=== PATIENT | male | born 1970 | race Two or more races ===

== ENCOUNTER 2017-01-17 13:25 | Emergency (ER) | payer OTHER ==
[2017-01-17 14:30] LABS: BASOPHILS % (AUTO) 0.5 %; EOSINOPHILS # (AUTO) 0.3 10^3/uL (0.0-0.7); EOSINOPHILS % (AUTO) 5.1 %; HCT - HEMATOCRIT 45.6 % (42.0-52.0); LYMPHOCYTES # (AUTO) 1.8 10^3/uL (1.5-3.5); LYMPHOCYTES % (AUTO) 26.3 %; MEAN CORPUSCULAR HEMOGLOBIN 33.4 pg (27.0-31.0); MEAN CORPUSCULAR VOLUME 95.2 fL (80.0-94.0); MEAN PLATELET VOLUME 7.8 fL (7.4-11.4); MONOCYTES # (AUTO) 0.7 10^3/uL (0.0-1.0); MONOCYTES % (AUTO) 11.1 %; NEUTROPHILS # (AUTO) 3.8 10^3/uL (1.5-6.6); RED BLOOD COUNT 4.79 10^6/uL (4.70-6.10); RED CELL DISTRIBUTION WIDTH 12.3 % (12.0-15.0); UNCORRECTED WHITE BLOOD COUNT 6.7 x10^3/uL; WHITE BLOOD COUNT 6.7 x10^3/uL (4.8-10.8)
[2017-01-17 15:19] LABS: ALBUMIN/GLOBULIN RATIO 1.5 (1.0-2.2); BILIRUBIN,TOTAL 0.5 mg/dL (0.2-1.0); CALCIUM 9.5 mg/dL (8.5-10.3); CREATININE 1.4 mg/dL (0.6-1.2); POTASSIUM 4.2 mmol/L (3.5-5.0); TOTAL PROTEIN 7.4 g/dL (6.7-8.2)
--- NOTE | 2017-01-17 16:15 | ED Physician Documentation ---
PD HPI ABD PAIN - Stated complaint Stated Complaint: BACK PAIN - Chief complaint Chief Complaint: Abd Pain - History obtained from History obtained from: Patient - History of Present Illness Timing - onset: How many days ago (few days ago with some back pain, the upper/ left abd pain. Noted some loose stool with blood just 2 days ago, then stools without blood but still with abd cramping.) Timing - duration: Days Timing - details: Gradual onset, Waxing and waning Quality: Cramping, Aching, Pain Location: Epigastric, LUQ Radiation: Left flank, Right flank Improved by: No: Eating Worsened by: No: Eating, Moving Associated symptoms: Nausea, Diarrhea (3 days ago for part of a day.), Hematochezia (just once, bright red, with stools.). No: Fever, Vomiting Review of Systems Constitutional: denies: Fever, Chills, Myalgias Nose: denies: Rhinorrhea / runny nose, Congestion Throat: denies: Sore throat Cardiac: denies: Chest pain / pressure, Palpitations Respiratory: denies: Dyspnea, Cough GI: reports: Abdominal Pain, Nausea, Constipation (had had firm stools prior and then the day of few stool). denies: Vomiting, Diarrhea : denies: Dysuria, Frequency PD PAST MEDICAL HISTORY - Past Medical History Past Medical History: Yes Cardiovascular: Hypertension Endocrine/Autoimmune: None GI: None Musculoskeletal: Chronic back pain - Past Surgical History Past Surgical History: No - Present Medications Home Medications: Ambulatory Orders Medication Instructions Recorded Confirmed Lisinopril 40 mg PO 06/06/13 12/02/13 HYDROcod/ACETAM 5/325 [Vicodin 1 - 2 ea PO Q6H PRN #15 tablet 12/02/13 5/325] Docusate Sodium 100 mg PO DAILY #30 capsule 01/17/17 Lisinopril 40 mg PO DAILY #30 tablet 01/17/17 Methocarbamol [Robaxin] 500 mg PO Q6H PRN #25 tablet 01/17/17 Naproxen 375 mg PO BID #20 tablet 01/17/17 Tramadol HCl 50 mg PO Q6H PRN #25 tablet 01/17/17 - Allergies Allergies/Adverse Reactions: Allergies Allergy/AdvReac Type Severity Reaction Status Date / Time No Known Drug Allergies Allergy Verified 06/06/13 19:00 - Social History Does the pt smoke?: Yes Smoking Status: Current every day smoker Does the pt drink ETOH?: Yes Does the pt have substance abuse?: No - Immunizations Immunizations are current?: Yes - POLST Patient has POLST: No PD ED PE NORMAL - Vitals Vital signs reviewed: Yes - General General: Alert and oriented X 3, No acute distress, Well developed/nourished - HEENT HEENT: Moist mucous membranes, Pharynx benign - Neck Neck: Supple, no meningeal sign, No adenopathy - Cardiac Cardiac: RRR, No murmur - Respiratory Respiratory: Clear bilaterally - Abdomen Abdomen: Normal bowel sounds, Soft, Non distended, No organomegaly, Other (some tenderness LUQ and mid abdomen without guarding nor percussion tenderness. ) - Male Male : Deferred - Rectal Rectal: Deferred - Back Back: No CVA TTP, No spinal TTP - Derm Derm: Normal color, Warm and dry, No rash - Extremities Extremities: No deformity, No tenderness to palpate, No edema, No calf tenderness / cord - Neuro Neuro: Alert and oriented X 3, No motor deficit, No sensory deficit, Normal speech - Psych Psych: Normal mood, Normal affect Results - Vitals Vitals: Oxygen O2 Source Room air - Labs Labs: Laboratory Tests 01/17/17 01/17/17 14:26 14:26 WBC 6.7 RBC 4.79 Hgb 16.0 Hct 45.6 MCV 95.2 H MCH 33.4 H MCHC 35.0 RDW 12.3 Plt Count 214 MPV 7.8 Neut # 3.8 Lymph # 1.8 [place] # 0.7 Eos # 0.3 Baso # 0.0 Absolute Nucleated RBC 0.00 Nucleated RBC % 0.0 Sodium 139 Potassium 4.2 Chloride 103 Carbon Dioxide 28 Anion Gap 8.0 BUN 15 Creatinine 1.4 H Estimated GFR (MDRD) 55 L Glucose 104 H Calcium 9.5 Total Bilirubin 0.5 AST 28 ALT 31 Alkaline Phosphatase 47 Total Protein 7.4 Albumin 4.4 Globulin 3.0 Albumin/Globulin Ratio 1.5 Lipase 48 - Rads (name of study) abd CT Radiology: Prelim report reviewed (normal, no acute process) PD MEDICAL DECISION MAKING - ED course Complexity details: reviewed results, considered differential (no obvious cause for the pain. Would be concerned about diverticulitis, kidney stones, ulcers, vascular problems, gastric ulcer with perf, etc.), d/w patient Departure - Departure Disposition: 01 Home, Self Care Clinical Impression: Neck pain, Upper abdominal pain Condition: Stable Record reviewed to determine appropriate education?: Yes Instructions: ED Abdominal Pain Unkn Cause, ED Neck Back Pain General Follow-Up: ARTURO Samuel [Provider Group] Prescriptions: Docusate Sodium 100 mg PO DAILY #30 capsule Lisinopril 40 mg PO DAILY #30 tablet Methocarbamol [Robaxin] 500 mg PO Q6H PRN #25 tablet PRN Reason: Spasms Naproxen 375 mg PO BID #20 tablet Tramadol HCl 50 mg PO Q6H PRN #25 tablet PRN Reason: Pain Comments: Drink lots of fluids. Docusate stool softener daily in case the abdominal pain is from intestinal irritation and this may help. For it in the neck also use naproxen twice daily for the next 7-10 days. For the neck add muscle relaxant methocarbamol 3 times daily. Add Tylenol or tramadol if needed for pains. Continue usual medication. Follow-up with your primary care in about a week, call for an appointment. Return sooner if worsening. Discharge Date/Time: 01/17/17 18:34
[2017-01-17] MEDS ORDERED: HYDROcod/ACETAM 5/325 MG TABLET PO STA (16:45)
[2017-01-17] MEDS ORDERED: HYDROcod/ACETAM 5/325 MG TABLET ONE (16:55)
--- NOTE | 2017-01-17 17:12 | XRAY Preliminary Report ---
Exam: XR CERVICAL SPINE 2 VIEW IMPRESSION: 1. Mild degenerative disease. No fracture or subluxation. [facility] SITE ID: [id number]
--- NOTE | 2017-01-17 17:15 | XRAY Report ---
EXAM: CERVICAL SPINE RADIOGRAPHY EXAM DATE: 01/17/2017 05:02 PM. CLINICAL HISTORY: Neck pain for long time. COMPARISONS: None. TECHNIQUE: 3 views. FINDINGS: Alignment: Normal. No spondylolisthesis or scoliosis. Bones: The cervical vertebral bodies and posterior elements are well visualized from the skull base t hrough C7-T1. No fractures or bone lesions. Disks: There is mild disk osteophyte spurring at C3-C4 and C5-C6. Facets: Facet joints appear in satisfactory alignment. Soft Tissues: Trachea is midline. IMPRESSION: 1. Mild degenerative disease. No fracture or subluxation. [facility] Referring Provider Line: [phone] SITE ID: [id number]
--- NOTE | 2017-01-17 17:22 | CT Preliminary Report ---
Exam: CT Abdomen/Pelvis W/O IMPRESSION: 1. 4 x 2 mm nonobstructing left kidney stone. 2. Otherwise negative exam. [facility] SITE ID: [id number]
--- NOTE | 2017-01-17 17:24 | CT Report ---
EXAM: CT ABDOMEN AND PELVIS (CT KUB) EXAM DATE: 01/17/2017 05:06 PM. CLINICAL HISTORY: Flank and left abd pain. COMPARISONS: None. TECHNIQUE: Routine axial helical CT imaging was performed through the abdomen and pelvis without IV c ontrast. Reconstructions: Coronal and sagittal. In accordance with CT protocol optimization, one or more of the following dose reduction techniques w ere utilized for this exam: automated exposure control, adjustment of mA and/or KV based on patient s ize, or use of iterative reconstructive technique. FINDINGS: Lung Bases: Unremarkable. Right Kidney/Ureter: No stones, hydronephrosis, or hydroureter. No perinephric fat stranding. Left Kidney/Ureter: There is a 4 x 2 mm stone in the mid upper pole calyx of left kidney. No hydronep hrosis or obstructing ureter stone. Other Solid Organs: Noncontrast images of the solid organs are grossly unremarkable. Gallbladder/Bile Ducts: The gallbladder is contracted. Peritoneal Cavity: There are no dilated bowel loops. No localized inflammatory process. The appendix is visible and appears normal. Pelvic Organs: Urinary bladder is empty. Vasculature: Unremarkable. Other: None. IMPRESSION: 1. 4 x 2 mm nonobstructing left kidney stone. 2. Otherwise negative exam. [facility] Referring Provider Line: [phone] SITE ID: [id number]
[2017-01-17] MEDS ORDERED: NAPROXEN 250 MG TABLET PO STA (18:17)
[2017-01-17] MEDS ORDERED: METHOCARBAMOL 500 MG TABLET PO STA (18:17)
[2017-01-17] MEDS ORDERED: NAPROXEN 250 MG TABLET PO ONE (18:28)
[2017-01-17] MEDS ORDERED: METHOCARBAMOL 500 MG TABLET PO ONE (18:28)
[2017-01-17 18:34] VITALS: BP 159/97
== END 2017-01-17 18:34 | disposition home or self-care (01) ==
LOC: ED 13:25
DX: R10.12 Left upper quadrant pain (principal); M54.2 Cervicalgia; I10 Essential (primary) hypertension; F17.200 Nicotine dependence, unspecified, uncomplicated
CPT/HCPCS: 36415; 72040; 74176; 80053; 83690; 85025; 99283; 99284; A9270

== ENCOUNTER 2017-01-24 09:25 | Inpatient (IN) | payer OTHER ==
[2017-01-24] MEDS ORDERED: SODIUM CHLORIDE 0.9% 1,000 ML IV ONE (09:39)
[2017-01-24 09:51] LABS: BASOPHILS # (AUTO) 0.1 10^3/uL (0.0-0.1); BASOPHILS % (AUTO) 0.7 %; EOSINOPHILS # (AUTO) 0.2 10^3/uL (0.0-0.7); EOSINOPHILS % (AUTO) 2.7 %; HCT - HEMATOCRIT 34.3 % (42.0-52.0); HGB - HEMOGLOBIN 11.9 g/dL (14.0-18.0); LYMPHOCYTES # (AUTO) 2.1 10^3/uL (1.5-3.5); LYMPHOCYTES % (AUTO) 24.8 %; MEAN CORPUSCULAR HEMOGLOBIN 32.9 pg (27.0-31.0); MEAN CORPUSCULAR HGB CONC 34.7 g/dL (32.0-36.0); MEAN PLATELET VOLUME 7.6 fL (7.4-11.4); MONOCYTES # (AUTO) 0.7 10^3/uL (0.0-1.0); MONOCYTES % (AUTO) 7.9 %; NEUTROPHILS # (AUTO) 5.5 10^3/uL (1.5-6.6); NEUTROPHILS % (AUTO) 63.9 %; RED BLOOD COUNT 3.61 10^6/uL (4.70-6.10); RED CELL DISTRIBUTION WIDTH 12.1 % (12.0-15.0); UNCORRECTED WHITE BLOOD COUNT 8.6 x10^3/uL; WHITE BLOOD COUNT 8.6 x10^3/uL (4.8-10.8)
[2017-01-24] MEDS ORDERED: FAMOTIDINE 20 MG/50 ML 50 ML IV ONE ×2 (09:54→10:04)
[2017-01-24] MEDS ORDERED: PANTOPRAZOLE 40 MG in SODIUM CHLORIDE 0.9% 100ML 100 ML IV STA (09:54)
--- NOTE | 2017-01-24 09:57 | ED Physician Documentation ---
History of Present Illness - Stated complaint Stated Complaint: VOMITIN/BLACK STOOL - Chief complaint Chief Complaint: Abd Pain - Additonal information Additional information: hx from pt 46 male [place] [employer] [place] seen 01/17 for upper abd pain and hematemesis X [address] now to ER with black stools still with int upper abd pain takes motrin and drinks EtOH no prior abd surgery no blood thinners Review of Systems Constitutional: denies: Fever, Chills Throat: denies: Sore throat Cardiac: denies: Chest pain / pressure Respiratory: denies: Dyspnea, Cough GI: reports: Abdominal Pain, Bloody / black stool Neurologic: denies: Generalized weakness Endocrine: denies: Easy bruising / bleeding Immunocompromised: denies: Immunocompromised PD PAST MEDICAL HISTORY - Past Medical History Cardiovascular: Hypertension Endocrine/Autoimmune: None GI: None, GI bleed Musculoskeletal: Chronic back pain - Past Surgical History Past Surgical History: No - Present Medications Home Medications: Ambulatory Orders Medication Instructions Recorded Confirmed Docusate Sodium 100 mg PO DAILY #30 capsule 01/17/17 01/24/17 Lisinopril 40 mg PO DAILY #30 tablet 01/17/17 01/24/17 Methocarbamol [Robaxin] 500 mg PO Q6H PRN #25 tablet 01/17/17 01/24/17 Naproxen 375 mg PO BID #20 tablet 01/17/17 01/24/17 - Allergies Allergies/Adverse Reactions: Allergies Allergy/AdvReac Type Severity Reaction Status Date / Time No Known Drug Allergies Allergy Verified 06/06/13 19:00 - Social History Does the pt smoke?: Yes Smoking Status: Current every day smoker Does the pt drink ETOH?: Yes ETOH Use: Beer Does the pt have substance abuse?: No - Immunizations Immunizations are current?: Yes - POLST Patient has POLST: No PD ED PE NORMAL - Vitals Vital signs reviewed: Yes (tachy SBP 101 and pt normally hypertensive) - General General: Alert and oriented X 3 - HEENT HEENT: PERRL - Neck Neck: Supple, no meningeal sign - Cardiac Cardiac: RRR - Respiratory Respiratory: No respiratory distress, Clear bilaterally - Abdomen Abdomen: Soft, Non tender (at this time no TTP but pt repoers int upper abd pain ) - Rectal Rectal: Other (no mass black strongle heme + stool) - Derm Derm: Normal color - Extremities Extremities: No deformity - Neuro Neuro: Alert and oriented X 3 Results - Vitals Vitals: Vital Signs - 24 hr 01/24/17 01/24/17 01/24/17 09:29 10:11 11:38 Temperature 36.7 C Heart Rate 110 H 91 Respiratory 18 16 Rate Blood Pressure 101/74 95/63 106/63 O2 Saturation 100 98 01/24/17 11:39 Temperature Heart Rate 102 H Respiratory 16 Rate Blood Pressure 96/61 O2 Saturation 100 Oxygen O2 Source Room air - Labs Labs: Laboratory Tests 01/24/17 01/24/17 01/24/17 09:40 09:40 09:40 WBC 8.6 RBC 3.61 L Hgb 11.9 L Hct 34.3 L MCV 95.0 H MCH 32.9 H MCHC 34.7 RDW 12.1 Plt Count 233 MPV 7.6 Neut # 5.5 Lymph # 2.1 [place] # 0.7 Eos # 0.2 Baso # 0.1 Absolute Nucleated RBC 0.00 Nucleated RBC % 0.0 PT INR Sodium 137 Potassium 3.8 Chloride 106 Carbon Dioxide 23 Anion Gap 8.0 BUN 62 H Creatinine 1.7 H Estimated GFR (MDRD) 44 L Glucose 104 H Calcium 9.1 Total Bilirubin 0.5 AST 21 ALT 22 Alkaline Phosphatase 28 L Total Protein 6.7 Albumin 4.0 Globulin 2.7 Albumin/Globulin Ratio 1.5 Lipase 82 H Blood Type A POSITIVE Antibody Screen NEGATIVE 01/24/17 09:55 WBC RBC Hgb Hct MCV MCH MCHC RDW Plt Count MPV Neut # Lymph # [place] # Eos # Baso # Absolute Nucleated RBC Nucleated RBC % PT 12.2 INR 1.1 Sodium Potassium Chloride Carbon Dioxide Anion Gap BUN Creatinine Estimated GFR (MDRD) Glucose Calcium Total Bilirubin AST ALT Alkaline Phosphatase Total Protein Albumin Globulin Albumin/Globulin Ratio Lipase Blood Type Antibody Screen PD MEDICAL DECISION MAKING - ED course ED course: pt had non con CT a week ago - no acute process sounds like upper GI bleed now, likely 2/2 NSAIDS and/or EtOH, with melena slightly tachycardia and borderline hypotension H/H sig drop from 01/17/17 also inc creat / renal insuff lipase noted, no sig abd pain or TTP right now, no sign of pancreatitis on recent CT scan will admit for further eval and management paged hospitalist and surgeon at 1035 AM surgeon promptly to ER and will take pt to same day surgery hospitalist to ED quickly as well and emanuel admit to inpt after scope given several L NS and should recheck creat GFR Departure - Departure Disposition: 66 [facility] DC/Xfer Clinical Impression: Renal insufficiency, Abnormal serum lipase level GI bleed Qualifiers: GI bleed type/associated pathology: unspecified gastrointestinal hemorrhage type Qualified Code(s): K92.2 - Gastrointestinal hemorrhage, unspecified Condition: Fair
[2017-01-24 10:03] LABS: ALBUMIN/GLOBULIN RATIO 1.5 (1.0-2.2); BILIRUBIN,TOTAL 0.5 mg/dL (0.2-1.0); CALCIUM 9.1 mg/dL (8.5-10.3); CREATININE 1.7 mg/dL (0.6-1.2); POTASSIUM 3.8 mmol/L (3.5-5.0); TOTAL PROTEIN 6.7 g/dL (6.7-8.2)
[2017-01-24] MEDS ORDERED: PANTOPRAZOLE 40 MG VIAL ONE (10:05)
[2017-01-24] MEDS ORDERED: SODIUM CHLORIDE FLUSH 0.9% 10 ML SYRINGE IVP ONE (10:05)
[2017-01-24 10:15] LABS: INR 1.1 (0.8-1.2); PT - PROTHROMBIN TIME 12.2 secs (9.9-12.6)
[2017-01-24] MEDS ORDERED: SODIUM CHLORIDE 0.9% 2,000 ML IV ONE (11:10)
[2017-01-24] MEDS ORDERED: METHOCARBAMOL 500 MG TABLET PO PRN (11:44)
[2017-01-24] MEDS ORDERED: ONDANSETRON 4 MG/2 ML VIAL IVP PRN (11:46)
[2017-01-24] MEDS ORDERED: ACETAMINOPHEN 325 MG TABLET PO PRN (11:46)
[2017-01-24] MEDS ORDERED: MORPHINE 2 MG/ML SYRINGE IVP PRN (11:46)
[2017-01-24] MEDS ORDERED: SODIUM CHLORIDE FLUSH 0.9% 10 ML SYRINGE IVP PRN (11:46)
[2017-01-24] MEDS ORDERED: FOLIC ACID INJ 1 MG in SODIUM CHLORIDE 0.9% 1,000 ML IV STA (11:57)
[2017-01-24] MEDS ORDERED: THIAMINE INJ 100 MG in SODIUM CHLORIDE 0.9% 50 ML IV STA (11:57)
[2017-01-24] MEDS ORDERED: LACTATED RINGERS 1,000 ML IV ONE (12:10)
[2017-01-24] MEDS ORDERED: EPINEPHrine 1 MG/ML AMP IM ONE (12:16)
[2017-01-24] MEDS ORDERED: LORazepam 2 MG/ML SYRINGE IVP PRN (12:18)
[2017-01-24] MEDS ORDERED: MIDAZOLAM 2 MG/2 ML VIAL IVP ONE (12:27)
[2017-01-24] MEDS ORDERED: fentaNYL 100 MCG/2 ML VIAL IVP ONE (12:27)
--- NOTE | 2017-01-24 12:57 | CONSULTATION NOTE ---
DATE OF CONSULTATION: 01/24/2017 00:00:00 REQUESTING PROVIDER: Shirley Martinez MD DATE OF ADMISSION: 01/24/2017 CONSULTATION AND A PRE-PROCEDURE NOTE I am called in consultation on this 46-year-old male by Dr. Shirley Martinez, to evaluate him for presum ed upper GI bleed. He was evaluated in room 4 at [facility]'s Emergency Department. The chief complaint is that of vomiting and black stools. HISTORY OF PRESENT ILLNESS: The patient was seen on January 17 for upper abdominal pain and hemateme sis x1. At that time he had a CT scan which was unrevealing. Now he is back to the emergency room wit h black stools and a decreased hemoglobin and hematocrit. He does take nonsteroidal anti-inflammatory drugs and drinks alcohol. He has had no previous abdominal surgery. He is not on any blood thinners. The history is obtained from the patient. ALLERGIES: NONE. MEDICATIONS 1. Docusate sodium 100 mg p.o. daily. 2. Lisinopril 40 mg p.o. daily. 3. Robaxin 500 mg p.o. every 6 hours as needed for pain. 4. Naprosyn 375 mg p.o. b.i.d. PAST MEDICAL AND SURGICAL HISTORY Includes: 1. Hypertension. 2. Chronic back pain. FAMILY HISTORY: Negative for any GI disease including cancer, inflammatory bowel disease, or GI bleed . SOCIAL HISTORY TOBACCO: He is an every day smoker. ALCOHOL: He drinks beer. RECREATIONAL DRUG USE: None. REVIEW OF SYSTEMS GENERAL: He denies fever, chills, or unexplained weight loss. HEENT: He denies any increase or decrease in his vision or hearing. NECK: He denies difficulty swallowing or speaking. CARDIAC: He denies chest pain or pressure. RESPIRATORY: He denies shortness of breath or productive cough. GASTROINTESTINAL: See above. NEUROLOGIC: He denies generalized weakness or focal weakness. ENDOCRINE: He denies easy bleeding or bruising. PHYSICAL EXAMINATION GENERAL: Again, the patient was examined in bed 4 at [facility]'s Emergency Departm ent. He is alert and oriented to person, place, and time. His mood and affect appear appropriate. He asks and answers questions without difficulty. VITAL SIGNS: Please refer to the nurse's note. HEENT: He is normocephalic. Anicteric. His sclerae are not injected, nonicteric, although his conjunc tivae appear pale. His mucous membranes are pink and slightly dry. NECK: Supple without mass or bruit. HEART: Slightly tachycardic. Without murmur. RESPIRATORY: There are breath sounds bilaterally. They are equal. There are no rhonchi or rales. ABDOMEN: Soft, nontender. RECTAL: Deferred. EXTREMITIES: No clubbing, cyanosis, or edema. GAIT: Normal (it was noticed as he went to the bathroom to go urinate). NEUROLOGIC: He is alert and oriented to person, place and time. His mood and affect appear appropriat e. He asks and answers questions well without focal deficit. LABORATORIES Abnormalities on his chemistry include a BUN of 62, creatinine of 1.7, GFR 44, glucose 104, alkaline phosphatase 28, lipase of 82. Coagulation profile: His PT is 12.2, INR is 1.1. Abnormalities on a CBC include an RBC of 3.61. Hemoglobin of 11.9, hematocrit of 34.3, MCV of 95.0, M CH of 32.9. ASSESSMENT: A 46-year-old male who, by history and symptoms, has a history of an upper gastrointestin al bleed as confirmed by melena, and decreased hemoglobin and hematocrit in the presence of nonsteroi jose luis use, as well as alcohol use. PLAN: Esophagogastroduodenoscopy. The indications, procedure, alternatives, and possible complication s including, but not limited to, perforation requiring operative repair, bleeding with all of its ris ks including transfusion, and were fully explained to the patient, and all questions were answe red. Verbal and written consent was obtained. The patient in preparation for this has been n.p.o. If there is any way we can make his stay at [facility] more comfortable, I asked him t o let us know. JOB #: [id number] EXT JOB #:[id number]
--- NOTE | 2017-01-24 13:11 | HISTORY & PHYSICAL EXAMINATION ---
DATE OF ADMISSION: 01/24/2017 DATE 01/24/2017 time is 12:35 p.m. CODE STATUS IS FULL CODE. PRIMARY CARE PROVIDER: Dr. Card EXAM LIMITATIONS: None. RECORDS REVIEWED: Yes. SOURCE OF INFORMATION: The patient. Yes he has an advanced directive. CHIEF COMPLAINT: Black and tarry stools with diarrhea. HISTORY OF PRESENT ILLNESS: The patient, a 46-year-old male, began having black tarry stools 3 days ago. Two days ago he had at least 4 cans of beer and more beer the day before. He has had nausea and vomiting. DRUG ALLERGIES: NONE. HOME MEDICATIONS: 1. Lisinopril 40 mg. 1 tab p.o. every day. 2. Acetaminophen p.r.n. 3. Robaxin 500 mg every 6 hours. 4. Naproxen 375 mg 1 tab p.o. twice a day. 5. Colace 100 mg tab p.o. every day. PAST MEDICAL HISTORY: Hypertension and lower back pain. PAST SURGICAL HISTORY: Noncontributory. FAMILY HISTORY: Noncontributory. SOCIAL HISTORY: He is . He has 2 children. 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 Smoking history of half a pack per day for 18 years. Alcohol history is abusive. Recreational drug abuse is none. [place] REVIEW OF SYSTEMS: RESPIRATORY: No productive cough, no shortness of breath. HEART: No chest pain, no palpitations. ABDOMEN: Diarrhea, nausea, vomiting and epigastric pain. Urinary system is no frequency, no burning urine. HEAD: No headaches. EYES: No blurred vision. EARS: No tinnitus or ear pain. NOSE: No runny nose. No pain or redness. MUSCULOSKELETAL: Lower back pain JOINTS: No joint pain. NEUROLOGICAL: No aphasia, no dementia. No limb weakness. Weakness and fatigue is yes and fevers no. PHYSICAL EXAMINATION: VITAL SIGNS: Temperature of 36.7, pulse 110, a respiratory rate of 18, blood pressure of 101/74, O2 saturation is 100% on room air. GENERAL: He is a well-nourished, alert, cooperative gentleman. HEENT: Head is atraumatic, normocephalic. Eyes are PERRLA, EOMI. NECK: Supple. No JVD, no bruits, no thyroid enlargement. No adenopathy. HEART: Regular rate and rhythm. LUNGS: Clear to auscultation. ABDOMEN: Positive for bowel sounds, soft, epigastric pain, no rebound, no guarding. EXTREMITIES: Warm. No edema, +2 pedal pulses. He has 5/5 muscle strength in upper and lower extremities. NEUROLOGIC: He is oriented x3, follows commands, moves all 4 extremities. Cranial nerves 2-12 are intact. LABORATORY DATA: Sodium is 137, potassium is 3.8, chloride is 106, bicarbonate is 23, BUN 62, creatinine is 1.7, glucose is 104. White blood cells is 8.6, hemoglobin is 11.9, hematocrit 34.3, glomerular filtration rate is 44, platelets are 233,000. PT is 12.2, INR is 1.1. Lipase is 85. Blood type is A. ASSESSMENT AND PLAN: 1. Gastrointestinal bleed. He will get hemograms every 8 hours. He has been typed and crossed for 2 units of packed red blood cells. He will get a CBC and CMP in a.m. He has a Dr. Gr consult. He will be on IV Protonix and IV 0.9 normal saline. For alcohol abuse withdrawal he is on CIWA protocol, banana bag, thiamine and folic acid. He will be in ICU bed. He will be on telemetry. He will get morphine sulfate for pain. 2. For deep venous thrombosis prophylaxis he will have SCDs and he is on IV Protonix to prevent stress ulcer. Anticipated length of stay is 3 days. JOB #: [id number] EXT JOB #:[id number] NAYELI
[2017-01-24 14:20] LABS: BASOPHILS % (AUTO) 0.5 %; EOSINOPHILS # (AUTO) 0.1 10^3/uL (0.0-0.7); EOSINOPHILS % (AUTO) 1.2 %; HCT - HEMATOCRIT 27.1 % (42.0-52.0); HGB - HEMOGLOBIN 9.3 g/dL (14.0-18.0); LYMPHOCYTES # (AUTO) 1.8 10^3/uL (1.5-3.5); MEAN CORPUSCULAR HEMOGLOBIN 33.2 pg (27.0-31.0); MEAN CORPUSCULAR HGB CONC 34.3 g/dL (32.0-36.0); MEAN CORPUSCULAR VOLUME 96.8 fL (80.0-94.0); MEAN PLATELET VOLUME 7.3 fL (7.4-11.4); MONOCYTES # (AUTO) 0.6 10^3/uL (0.0-1.0); MONOCYTES % (AUTO) 7.1 %; NEUTROPHILS # (AUTO) 6.4 10^3/uL (1.5-6.6); NEUTROPHILS % (AUTO) 71.2 %; UNCORRECTED WHITE BLOOD COUNT 8.9 x10^3/uL; WHITE BLOOD COUNT 8.9 x10^3/uL (4.8-10.8)
[2017-01-24 14:39] LABS: ALBUMIN/GLOBULIN RATIO 1.4 (1.0-2.2); BILIRUBIN,TOTAL 0.4 mg/dL (0.2-1.0); CALCIUM 7.8 mg/dL (8.5-10.3); CREATININE 1.4 mg/dL (0.6-1.2); PHOSPHORUS 2.3 mg/dL (2.5-4.6); POTASSIUM 3.8 mmol/L (3.5-5.0); TOTAL PROTEIN 5.2 g/dL (6.7-8.2)
[2017-01-24] MEDS: SODIUM CHLORIDE FLUSH 0.9% 10 ML SYRINGE IVP SCH ×2 (14:58→21:35)
[2017-01-24] MEDS: SODIUM CHLORIDE 0.9% 1,000 ML IV SCH (14:58)
[2017-01-24] MEDS: SUCRALFATE 1 GM/10 ML UDC PO SCH ×3 (14:58→21:35)
[2017-01-24] MEDS: MULTIVITAMIN 10 ML in SODIUM CHLORIDE 0.9% 1,000 ML IV SCH (15:31)
[2017-01-24] MEDS: SODIUM CHLORIDE 0.9% IV SCH (15:31)
[2017-01-24] MEDS: FOLIC ACID IV SCH (15:31)
[2017-01-24] MEDS: THIAMINE IV SCH (15:31)
[2017-01-24] MEDS ORDERED: SODIUM CHLORIDE 0.9% IV SCH (16:00)
[2017-01-24] MEDS ORDERED: SUCRALFATE 1 GM/10 ML UDC PO SCH (16:00)
[2017-01-24] MEDS ORDERED: FOLIC ACID INJ 1 MG in SODIUM CHLORIDE 0.9% 1,000 ML IV SCH (16:00)
[2017-01-24] MEDS ORDERED: FOLIC ACID IV SCH (16:00)
[2017-01-24 20:22] LABS: HCT - HEMATOCRIT 25.9 % (42.0-52.0); HGB - HEMOGLOBIN 8.9 g/dL (14.0-18.0); MEAN CORPUSCULAR HEMOGLOBIN 33.2 pg (27.0-31.0); MEAN CORPUSCULAR HGB CONC 34.5 g/dL (32.0-36.0); MEAN CORPUSCULAR VOLUME 96.4 fL (80.0-94.0); MEAN PLATELET VOLUME 7.2 fL (7.4-11.4); RED BLOOD COUNT 2.68 10^6/uL (4.70-6.10); RED CELL DISTRIBUTION WIDTH 12.1 % (12.0-15.0); WHITE BLOOD COUNT 10.3 x10^3/uL (4.8-10.8)
[2017-01-24] MEDS: PANTOPRAZOLE 40 MG VIAL IVP SCH (21:37)
[2017-01-24] MEDS: NEUTRA-PHOS 250 MG TABLET PO SCH (22:24)
[2017-01-25] MEDS: NEUTRA-PHOS 250 MG TABLET PO SCH ×3 (00:39→09:19)
[2017-01-25] MEDS: SODIUM CHLORIDE 0.9% 1,000 ML IV SCH ×2 (01:42→20:14)
[2017-01-25] MEDS: SODIUM CHLORIDE FLUSH 0.9% 10 ML SYRINGE IVP SCH ×4 (06:29→22:30)
[2017-01-25] MEDS: SUCRALFATE 1 GM/10 ML UDC PO SCH ×4 (06:29→22:30)
[2017-01-25] MEDS ORDERED: PANTOPRAZOLE 40 MG VIAL IVP SCH (07:00)
[2017-01-25 08:31] LABS: BASOPHILS # (AUTO) 0.1 10^3/uL (0.0-0.1); BASOPHILS % (AUTO) 1.1 %; EOSINOPHILS # (AUTO) 0.2 10^3/uL (0.0-0.7); EOSINOPHILS % (AUTO) 3.6 %; HCT - HEMATOCRIT 23.3 % (42.0-52.0); LYMPHOCYTES # (AUTO) 1.6 10^3/uL (1.5-3.5); LYMPHOCYTES % (AUTO) 24.7 %; MEAN CORPUSCULAR HEMOGLOBIN 32.8 pg (27.0-31.0); MEAN CORPUSCULAR HGB CONC 34.4 g/dL (32.0-36.0); MEAN CORPUSCULAR VOLUME 95.3 fL (80.0-94.0); MEAN PLATELET VOLUME 7.3 fL (7.4-11.4); MONOCYTES # (AUTO) 0.4 10^3/uL (0.0-1.0); NEUTROPHILS % (AUTO) 63.6 %; RED BLOOD COUNT 2.45 10^6/uL (4.70-6.10); RED CELL DISTRIBUTION WIDTH 11.9 % (12.0-15.0); UNCORRECTED WHITE BLOOD COUNT 6.3 x10^3/uL; WHITE BLOOD COUNT 6.3 x10^3/uL (4.8-10.8)
[2017-01-25 08:43] LABS: ALBUMIN/GLOBULIN RATIO 1.4 (1.0-2.2); BILIRUBIN,TOTAL 0.5 mg/dL (0.2-1.0); CALCIUM 7.5 mg/dL (8.5-10.3); CREATININE 1.2 mg/dL (0.6-1.2); POTASSIUM 3.6 mmol/L (3.5-5.0); TOTAL PROTEIN 5.1 g/dL (6.7-8.2)
[2017-01-25] MEDS: FOLIC ACID IV SCH (09:17)
[2017-01-25] MEDS: THIAMINE IV SCH (09:17)
[2017-01-25] MEDS: SODIUM CHLORIDE 0.9% IV SCH (09:17)
[2017-01-25] MEDS: MULTIVITAMIN 10 ML in SODIUM CHLORIDE 0.9% 1,000 ML IV SCH (09:18)
[2017-01-25] MEDS: PANTOPRAZOLE 40 MG VIAL IVP SCH (09:19)
[2017-01-25] MEDS: LISINOPRIL 20 MG TABLET PO SCH (10:41)
[2017-01-25 14:31] LABS: VBG PH 7.384 (7.31-7.41)
[2017-01-25 14:32] LABS: CALCIUM, IONIZED 1.07 mmol/L (1.15-1.33)
[2017-01-25] MEDS ORDERED: CALCIUM GLUCONATE 1,000 MG in SODIUM CHLORIDE 0.9% 50 ML IV ONE (14:48)
--- NOTE | 2017-01-25 17:40 | PROVIDER PROGRESS NOTE ---
Subjective - Prog Note Date Prog Note Date: 01/25/17 Prog Note Time: 17:38 - Subjective Subjective: he is antsy and wants to go home. still having black tarry stools. hungry and wants to eat. Hgb has drifted down to 8 this am. Current Medications - Current Medications Current Medications: Active Medications Acetaminophen (Tylenol) 650 mg PO Q4HR PRN PRN Reason: Pain 1 to 4 Folic Acid () 1 mg PO DAILY [facility] Sodium Chloride (Normal Saline 0.9%) 1,000 mls @ 100 mls/hr IV .Q10H [facility] Last Infusion: 01/25/17 09:18 Dose: 0 mls/hr Multivitamins 10 ml/ Sodium (Chloride) 1,010 mls @ 100 mls/hr IV DAILY [facility] Last Admin: 01/25/17 09:18 Dose: 100 mls/hr Folic Acid 1 mg/ Thiamine HCl (100 mg/ Sodium Chloride) 101.2 mls @ 100 mls/hr IV DAILY [facility] Last Infusion: 01/25/17 10:41 Dose: Infused Lisinopril (Zestril) 40 mg PO DAILY [facility] Last Admin: 01/25/17 10:41 Dose: Not Given Lorazepam (Ativan Inj) 1 mg IVP Q30M PRN; Protocol PRN Reason: CIWA > 8 Methocarbamol (Robaxin) 500 mg PO Q6H PRN PRN Reason: Spasms Morphine Sulfate (Morphine) 1 mg IVP Q6H PRN PRN Reason: Pain 8 to 10 Ondansetron HCl (Zofran Inj) 4 mg IVP Q6HR PRN PRN Reason: Nausea / Vomiting Pantoprazole Sodium (Protonix) 40 mg IVP BID [facility] Last Admin: 01/25/17 09:19 Dose: 40 mg Sodium Chloride (Normal Saline Flush 0.9%) 10 ml IVP Q8HR [facility] Last Admin: 01/25/17 15:54 Dose: 10 ml Sodium Chloride (Normal Saline Flush 0.9%) 10 ml IVP PRN PRN PRN Reason: NEEDED PER PROVIDER ORDERS Sucralfate (Carafate) 1 gm PO 0700,1100,1600,2200 [facility] Last Admin: 01/25/17 16:16 Dose: 1 gm Thiamine HCl (Vitamin B-1) 100 mg PO DAILY JONATHAN Objective - Vital Signs/Intake & Output Reviewed Vital Signs: Yes Vital Signs: Vital Signs x48h Temp Pulse Resp BP Pulse Ox 01/25/17 17:00 73 20 102/74 100 01/25/17 16:00 73 20 115/81 H 100 01/25/17 15:00 78 20 97/64 100 01/25/17 14:00 76 21 107/65 100 01/25/17 13:00 90 26 H 125/79 100 01/25/17 12:00 36.7 C 81 24 94/66 100 01/25/17 11:00 90 21 101/67 100 01/25/17 10:00 74 25 H 102/65 100 Intake & Output: Intake & Output 01/22/17 01/23/17 01/24/17 01/25/17 23:59 23:59 23:59 23:59 Intake Total 2832.867 1761.200 Output Total 900 200 Balance 2206.667 2959.200 - Objective General Appearance: positive: No acute distress, Alert, Other (short statured hsipanic male who looks younger than stated age) Eyes Bilateral: positive: PERRL, EOMI ENT: positive: Pharynx nml Neck: positive: No JVD. negative: Lymphadenopathy (R), Lymphadenopathy (L), Stiff neck, Carotid bruit Respiratory: positive: Chest non-tender. negative: Wheezes, Rales, Rhonchi Cardiovascular: positive: Regular rate & rhythm. negative: Systolic murmur, Gallop/S4, Friction rub Abdomen: positive: No organomegaly, Nml bowel sounds, No distention, Tenderness (mild and mid abd around umbilicus and epigastrium) Skin: positive: Warm, Dry Extremities: positive: Non-tender, Full ROM Neurologic/Psychiatric: positive: Oriented x3, CN's nml (2-12), Motor nml, Depressed mood/affect - Lab Results Fish Bones: 01/25/17 08:14 01/25/17 08:14 Other Labs: Lab Results x24hrs 01/25/17 01/25/17 01/25/17 Range/Units 14:14 08:14 08:14 WBC 6.3 (4.8-10.8) x10^3/uL RBC 2.45 L (4.70-6.10) 10^6/uL Hgb 8.0 L (14.0-18.0) g/dL Hct 23.3 L (42.0-52.0) % MCV 95.3 H (80.0-94.0) fL MCH 32.8 H (27.0-31.0) pg MCHC 34.4 (32.0-36.0) g/dL RDW 11.9 L (12.0-15.0) % Plt Count 155 (130-450) 10^3/uL MPV 7.3 L (7.4-11.4) fL Neut # 4.0 (1.5-6.6) 10^3/uL Lymph # 1.6 (1.5-3.5) 10^3/uL [place] # 0.4 (0.0-1.0) 10^3/uL Eos # 0.2 (0.0-0.7) 10^3/uL Baso # 0.1 (0.0-0.1) 10^3/uL Absolute Nucleated RBC 0.00 x10^3/uL Nucleated RBC % 0.0 /100WBC VBG pH 7.384 (7.31-7.41) Ionized Calcium 1.07 L (1.15-1.33) mmol/L Sodium 141 (135-145) mmol/L Potassium 3.6 (3.5-5.0) mmol/L Chloride 113 H (101-111) mmol/L Carbon Dioxide 23 (21-32) mmol/L Anion Gap 5.0 L (6-13) BUN 27 H (6-20) mg/dL Creatinine 1.2 (0.6-1.2) mg/dL Estimated GFR (MDRD) 65 L (>89) Glucose 97 (70-100) mg/dL POC Whole Bld Glucose (70 - 100) mg/dL Calcium 7.5 L (8.5-10.3) mg/dL Phosphorus (2.5-4.6) mg/dL Magnesium (1.7-2.8) mg/dL Total Bilirubin 0.5 (0.2-1.0) mg/dL AST 18 (10-42) IU/L ALT 19 (10-60) IU/L Alkaline Phosphatase 28 L (42-121) IU/L Total Protein 5.1 L (6.7-8.2) g/dL Albumin 3.0 L (3.2-5.5) g/dL Globulin 2.1 (2.1-4.2) g/dL Albumin/Globulin Ratio 1.4 (1.0-2.2) 01/25/17 01/25/17 01/25/17 Range/Units 06:04 04:51 00:37 WBC (4.8-10.8) x10^3/uL RBC (4.70-6.10) 10^6/uL Hgb (14.0-18.0) g/dL Hct (42.0-52.0) % MCV (80.0-94.0) fL MCH (27.0-31.0) pg MCHC (32.0-36.0) g/dL RDW (12.0-15.0) % Plt Count (130-450) 10^3/uL MPV (7.4-11.4) fL Neut # (1.5-6.6) 10^3/uL Lymph # (1.5-3.5) 10^3/uL [place] # (0.0-1.0) 10^3/uL Eos # (0.0-0.7) 10^3/uL Baso # (0.0-0.1) 10^3/uL Absolute Nucleated RBC x10^3/uL Nucleated RBC % /100WBC VBG pH (7.31-7.41) Ionized Calcium (1.15-1.33) mmol/L Sodium (135-145) mmol/L Potassium (3.5-5.0) mmol/L Chloride (101-111) mmol/L Carbon Dioxide (21-32) mmol/L Anion Gap (6-13) BUN (6-20) mg/dL Creatinine (0.6-1.2) mg/dL Estimated GFR (MDRD) (>89) Glucose (70-100) mg/dL POC Whole Bld Glucose 90 84 (70 - 100) mg/dL Calcium (8.5-10.3) mg/dL Phosphorus 2.0 L (2.5-4.6) mg/dL Magnesium 2.0 (1.7-2.8) mg/dL Total Bilirubin (0.2-1.0) mg/dL AST (10-42) IU/L ALT (10-60) IU/L Alkaline Phosphatase (42-121) IU/L Total Protein (6.7-8.2) g/dL Albumin (3.2-5.5) g/dL Globulin (2.1-4.2) g/dL Albumin/Globulin Ratio (1.0-2.2) 01/24/17 Range/Units 20:13 WBC 10.3 (4.8-10.8) x10^3/uL RBC 2.68 L (4.70-6.10) 10^6/uL Hgb 8.9 L (14.0-18.0) g/dL Hct 25.9 L (42.0-52.0) % MCV 96.4 H (80.0-94.0) fL MCH 33.2 H (27.0-31.0) pg MCHC 34.5 (32.0-36.0) g/dL RDW 12.1 (12.0-15.0) % Plt Count 179 (130-450) 10^3/uL MPV 7.2 L (7.4-11.4) fL Neut # (1.5-6.6) 10^3/uL Lymph # (1.5-3.5) 10^3/uL [place] # (0.0-1.0) 10^3/uL Eos # (0.0-0.7) 10^3/uL Baso # (0.0-0.1) 10^3/uL Absolute Nucleated RBC x10^3/uL Nucleated RBC % /100WBC VBG pH (7.31-7.41) Ionized Calcium (1.15-1.33) mmol/L Sodium (135-145) mmol/L Potassium (3.5-5.0) mmol/L Chloride (101-111) mmol/L Carbon Dioxide (21-32) mmol/L Anion Gap (6-13) BUN (6-20) mg/dL Creatinine (0.6-1.2) mg/dL Estimated GFR (MDRD) (>89) Glucose (70-100) mg/dL POC Whole Bld Glucose (70 - 100) mg/dL Calcium (8.5-10.3) mg/dL Phosphorus (2.5-4.6) mg/dL Magnesium (1.7-2.8) mg/dL Total Bilirubin (0.2-1.0) mg/dL AST (10-42) IU/L ALT (10-60) IU/L Alkaline Phosphatase (42-121) IU/L Total Protein (6.7-8.2) g/dL Albumin (3.2-5.5) g/dL Globulin (2.1-4.2) g/dL Albumin/Globulin Ratio (1.0-2.2) Assessment/Plan - Problem List (1) Acute blood loss anemia Impression: from GI bleed present on admission and worse today. but no hypotension or tachycardia. continue to monitor with Hgb and Hct tonight. Transfuse if < 7 grams. If his stool normalized tomorrow will be able to dc. (2) Peptic ulcer disease Impression: identified on EGD and he has two areas. not acutely bleeding. H pylori pending. he smokes and drinks beer. Instructed to stop both, no NSAID for the next 2 -3 months and may resume NSAID prn if sparingly used. he will need PPI and carafate for 6-8 weeks. will need repeat EGD after that. he is hungry, will advance diet from clear to regular. (3) Alcohol abuse Impression: no withdrawal in that no HTN, tachycardia or diaphoresis. ?anxiety but that may be from being in the hospital and wants out. he is vague about how much he drinks.
[2017-01-25] MEDS: PANTOPRAZOLE 40 MG TABLET PO SCH (20:14)
[2017-01-26 05:38] LABS: CALCIUM 7.5 mg/dL (8.5-10.3); MAGNESIUM 1.9 mg/dL (1.7-2.8); PHOSPHORUS 2.1 mg/dL (2.5-4.6); POTASSIUM 3.6 mmol/L (3.5-5.0)
[2017-01-26] MEDS: SODIUM CHLORIDE 0.9% 1,000 ML IV SCH (06:28)
[2017-01-26] MEDS: SODIUM CHLORIDE FLUSH 0.9% 10 ML SYRINGE IVP SCH (06:29)
[2017-01-26] MEDS: SUCRALFATE 1 GM/10 ML UDC PO SCH ×2 (06:29→12:21)
[2017-01-26] MEDS ORDERED: SODIUM CHLORIDE 0.9% 1,000 ML IV ONE (06:30)
[2017-01-26] MEDS ORDERED: MULTIVITAMIN TABLET PO SCH (08:00)
[2017-01-26] MEDS: PANTOPRAZOLE 40 MG TABLET PO SCH (08:15)
[2017-01-26] MEDS: NEUTRA-PHOS 250 MG TABLET PO SCH ×2 (08:16→10:14)
[2017-01-26] MEDS ORDERED: FOLIC ACID 1 MG TABLET PO SCH (09:00)
[2017-01-26] MEDS ORDERED: THIAMINE 100 MG TABLET PO SCH (09:00)
--- NOTE | 2017-01-26 09:10 | Discharge Plan ---
Discharge Plan Disposition: 01 Home, Self Care Condition: Good Prescriptions: Pantoprazole [Protonix] 40 mg PO BID #60 tablet Sucralfate 1 gm PO ACHS #120 tablet Diet: Regular (AVOID TOO MANY ACIDIC FOODS) Activity Restrictions: Activity as Tolerated Shower Restrictions: No Driving Restrictions: No Additional Instructions or Follow Up instructions: You were admitted because you had severe tiredness and black tarry stools. You had a new anemia and required transfusion of blood. This was because you have ulcers in your stomach. The ulcers bled and caused the black tarry stools and the anemia. Treatment will be taking a new ulcer medicine, and a stomach soothing medication for the next 2 months. Protonix will be twice a day and sucralfate will be before meals and at bedtime. To help ulcers heal, you cannot have any alcohol at all. Nor can you take any anti-inflammatory medicines for pain. In other words you cannot take ibuprofen , Aleve, aspirin, Naprosyn, Motrin, etc. The only pain medicine you can take that is [id number] will be Tylenol. The generic name for that is acetaminophen. In addition to stopping any anti-inflammatories, you must also stop all drinking. You cannot have beer, vodka, or whiskey. You must also stop all smoking. Both of these things can cause ulcers especially since you took Naprosyn for your back pain. You have back pain. You are being followed at the [facility] for that. You can still do your physical therapy. You can also return to work with activity as tolerated. There should be no restrictions of your activity on the basis of your ulcer disease. The general surgeon, Dr. Gr, would like to see you in 6 weeks. He will most likely repeat the upper endoscopy to make sure the ulcers have healed. Once you have seen him he will most likely stopped your Protonix and sucralfate. But he needs to be the one to stop it not anyone else. Also try to make an appointment with your [facility] doctor to be seen in followup. No Smoking: If you smoke, Please STOP! Call for help. Follow-up with: Wilmer Gr MD [Provider Admit Priv/Credential] -
[2017-01-26 09:48] LABS: HGB - HEMOGLOBIN 8.3 g/dL (14.0-18.0)
[2017-01-26] MEDS: LISINOPRIL 20 MG TABLET PO SCH (10:14)
[2017-01-26 12:54] VITALS: BP 121/88
--- NOTE | 2017-01-26 18:37 | DISCHARGE SUMMARY ---
DATE OF ADMISSION: 01/24/2017 DATE OF DISCHARGE: 01/26/2017 DISCHARGE DIAGNOSES: 1. Upper gastrointestinal bleed. 2. Peptic ulcer disease. 3. Acute blood loss anemia. 4. Alcohol abuse. 5. Nonsteroidal use. 6. Tobacco abuse. 7. STACEY test positive. DISCHARGE MEDICATIONS: 1. Colace 100 mg daily as needed. 2. Lisinopril 40 mg daily. 3. Robaxin 500 mg p.o. q.6h. p.r.n. pain. 4. Protonix 40 mg p.o. b.i.d. for at least the next 8 weeks. 5. Sucralfate 1 gram p.o. a.c. and at bedtime for the next 8 weeks. 6. Vitamin B1 100 mg p.o. daily. At the time of discharge, the patient's STACEY test was not known. At the time of dictation, the STACEY test is now positive and the patient will need to be seen in the outpatient setting and started on Prevpac or treatment for H pylori. PRINCIPAL PROCEDURES: Esophagogastroduodenoscopy 01/24/2017. General Surgery consult with Dr. Wilmer Gr 01/23/2017. HOSPITAL COURSE: The patient is a 46-year-old male who works for the [employer]. He abuses alcohol on the form of binge drinking of beer, anywhere from 4- 6 a day, but not necessarily daily. He also has a bad back, and has been using Naprosyn on almost a regular basis. He also smokes. He developed bloody diarrhea 3 days prior to admission with generalized abdominal aching. Finally, came to the emergency room when he could not take the discomfort more. In the emergency room, pulse was 110, blood pressure 101/ 74 and oxygenating normally. General physical exam was benign and his initial hemoglobin was 11.9 with hematocrit 34.3. He was placed in the hospital for upper GI bleed. He had serial hemoglobin and hematocrit checked and he nadired at 7.6 on 01/25/2017. He continued to have black tarry stool until 01/25/2017. On the morning of 01/26/2017, stool was mainly brown with only tinges of black around it. That morning hemoglobin was 8.3. Although he had mild tachycardia, the patient never needed transfusion. On the day of discharge, pulse was 80. During his stay, the lowest blood pressure he had was in the 80s/60s. On the day of discharge, he is 121/88. Alcohol withdrawal was felt to be a possible risk for this gentleman and he was initially placed on CIWA protocol but never ended up needing any benzodiazepine or control of his behavior because of alcohol withdrawal. He had no evidence of alcohol withdrawal during his stay. He did receive a multivitamin supplement in the form of thiamine and folate. EGD was done by General Surgery and he was found to have 2 areas of peptic ulcer disease. A clot of blood was washed off to make sure he was not acutely bleeding and he had no recurrence of bleeding while in the hospital. He was STACEY test positive, this was found out at the time of dictation. As such, he will need treatment for H pylori in the outpatient setting. During his stay, the patient did complain of low back pain, but it is an ongoing issue of many years' duration. As such that issue was not addressed other than giving him Flexeril and Tylenol. He was counseled several times on the importance of how alcohol, smoking, and nonsteroidal therapy can all contribute to ulcer disease. As such, he has been instructed not to take any nonsteroidal therapy for the next few months, to take Tylenol only for pain, to take Protonix twice a day and Carafate before meals and at bedtime. He will need to see Dr. Gr in the next 6 weeks for followup and it is planned that he will have a followup EGD to document healing. The only other issue that was noticed in this patient, but not addressed in a formal fashion, was his lack of insight, and sometimes apparent cognitive deficits. When I first met this gentleman, I thought it was a combination of being in the ICU, bleeding and being uncomfortable and then getting Versed and Fentanyl with his EGD. But over the next 2 days, the patient's sensorium was clear. He was lucid, alert, oriented, but again very poor insight into how all of these things have conjoined together to give him these issues. I needed to repeat information several times because he did not understand. At one point, I did speak Korean, thinking that there may be a language barrier, but that did not help either. 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 I have asked him to please followup with his primary care provider at the [employer] [facility], please be seen in the next week. Continue these medications of Carafate and Protonix. That primary care provider will need to access this discharge summary and start the patient on treatment for H pylori. At the time of discharge, blood pressure was 121/88, pulse 80, respirations 19 and he is 100% on room air. He is of short stature, balding, male. Quiet affect, sometimes shy stuttering speech. Neck is supple. Lungs are clear. He has a regular rate and rhythm. The abdomen is soft, nontender. Normal bowel sounds. The feet had no edema. He is ambulating in the room to sit at the window , get up to go to the bathroom, without ataxia, shuffling, diaphoresis or discomfort. Hemoglobin on the day of discharge 8.3 with hematocrit 24. He is discharged in stable condition with greater than 30 minutes spent in coordinating discharge. JOB #: [id number] EXT JOB #:[id number]
== END 2017-01-26 12:40 | disposition home or self-care (01) | DRG 378 ==
LOC: ED 09:25 → ICU 11:46
PROVIDERS: ATTEND Specialist
PROC: 0DB78ZX Excision of Stomach, Pylorus, Via Natural or Artificial Opening Endoscopic, Diagnostic (ICD-10-PCS; 2017-01-24)
PROC: 3E0G8GC Introduction of Other Therapeutic Substance into Upper GI, Via Natural or Artificial Opening Endoscopic (ICD-10-PCS; principal; 2017-01-24 11:30)
DX: K26.4 Chronic or unspecified duodenal ulcer with hemorrhage (principal); D62 Acute posthemorrhagic anemia; K25.9 Gastric ulcer, unspecified as acute or chronic, without hemorrhage or perforation; B96.81 Helicobacter pylori [H. pylori] as the cause of diseases classified elsewhere; I95.9 Hypotension, unspecified; N28.9 Disorder of kidney and ureter, unspecified; I10 Essential (primary) hypertension; F10.10 Alcohol abuse, uncomplicated; M54.5 Low back pain; G89.29 Other chronic pain; F17.210 Nicotine dependence, cigarettes, uncomplicated; Z79.1 Long term (current) use of non-steroidal anti-inflammatories (NSAID)
CPT/HCPCS: 36415; 80053; 82310; 82330; 83690; 83735; 84100; 84132; 85014; 85018; 85025; 85610; 86850; 86900; 86901; 86920; 87081; 87150; 96365; 96368; 99283; 99284